=== PATIENT | male | born 1945 | race Caucasian/White ===

== ENCOUNTER 2017-12-01 11:54 | Inpatient (IN) | payer MEDICARE, BC ==
[~2017-12-01] VITALS: Ht 180.3 cm; Wt 240.0 kg
[~2017-12-01 11:54] MED LIST: Asprin PO; BENA40TA2 PO; FINA5TAB11 PO; HYT5T PO; METF500T PO; NOR5T PO
[2017-12-01 12:49] LABS: BASOPHILS % (AUTO) 0.2 % (0-1); EOSINOPHILS # (AUTO) 0.1 X10'3 (0-0.9); EOSINOPHILS % (AUTO) 1.8 % (0-6); HEMATOCRIT 44.1 % (42.0-52.0); HEMOGLOBIN 15.2 g/dl (14.0-17.9); LYMPHOCYTES # (AUTO) 1.1 X10'3 (1.1-4.8); LYMPHOCYTES % (AUTO) 17.9 % (21-51); MEAN CORPUSCULAR HEMOGLOBIN 30.5 PG (27.0-31.0); MEAN CORPUSCULAR HGB CONC 34.4 % (33.0-36.5); MEAN CORPUSCULAR VOLUME 88.7 FL (78-98); MEAN PLATELET VOLUME 8.9 FL (7.4-10.4); MONOCYTES # (AUTO) 0.5 X10'3 (0-0.9); MONOCYTES % (AUTO) 8.5 % (2-12); NEUTROPHILS # (AUTO) 4.4 X10'3 (1.8-7.7); NEUTROPHILS % (AUTO) 71.6 % (42-75); PLATELET COUNT 127 X10'3 (140-440); RED BLOOD COUNT 4.97 X10'6 (4.70-6.10); RED CELL DISTRIBUTION WIDTH 13.9 % (11.5-14.5); WHITE BLOOD COUNT 6.1 X10'3 (4.5-11.0)
[2017-12-01 13:00] LABS: PROTHROMBIN TIME 10.7 SECONDS (9.0-12.0)
[2017-12-01 13:15] LABS: ALANINE AMINOTRANSFERASE 30 U/L (12-78); ALBUMIN 3.7 G/DL (3.4-5.0); ALBUMIN/GLOBULIN RATIO 1.1 (1.1-1.5); ALKALINE PHOSPHATASE 69 IU/L (46-116); ANION GAP 10 (8-16); ASPARTATE AMINO TRANSFERASE 19 U/L (10-37); BILIRUBIN,TOTAL 0.4 MG/DL (0.1-1.0); BLOOD UREA NITROGEN 23 MG/DL (7-18); BUN/CREATININE RATIO 16.4 (5.4-32.0); CALCIUM 9.2 MG/DL (8.5-10.1); CHLORIDE 107 MMOL/L (99-107); GLUCOSE 208 MG/DL (70-104); MAGNESIUM 1.8 MG/DL (1.5-2.4); SODIUM 143 MMOL/L (135-145); TOTAL CARBON DIOXIDE 26.5 MMOL/L (24-32); TOTAL PROTEIN 7.2 G/DL (6.4-8.2); eGFR 50 ML/MIN
[2017-12-01] MEDS ORDERED: CANA300T PO (13:47)
[2017-12-01] MEDS ORDERED: METO25TA6 PO (13:48)
[2017-12-01] MEDS ORDERED: NITR0.4T SL (13:50)
[2017-12-01] MEDS ORDERED: SITA100T11 PO (13:51)
[2017-12-01] MEDS ORDERED: CHOL10002 PO (13:51)
[2017-12-01] MEDS ORDERED: MESSAGE TO PHARMACY PO ONE (14:30)
[2017-12-01] MEDS ORDERED: insulin Lispro (HumaLOG) vial - multi-dose SQ SCH (14:30)
[2017-12-01] MEDS ORDERED: glucagon, human recombinant 1mg kit SUBCUT PRN (14:30)
[2017-12-01] MEDS ORDERED: magnesium 2GM in 50ml NS 50 ML IV PRN (14:30)
[2017-12-01] MEDS ORDERED: potassium Cl 20 mEq SR tablet PO PRN ×2 (14:30)
[2017-12-01] MEDS ORDERED: mag hydrox/Alum hydrox/simeth 30ml oral suspension PO PRN (14:30)
[2017-12-01] MEDS ORDERED: ondansetron/PF 4mg/2ml inj IV PRN (14:30)
[2017-12-01] MEDS ORDERED: dextrose ORAL solution 15 GM/59 ML bottle PO PRN ×2 (14:30)
[2017-12-01] MEDS ORDERED: magnesium hydroxide 30ml (MOM) UD suspension PO PRN (14:30)
[2017-12-01] MEDS ORDERED: magnesium 4gm in 100ml NS 100 ML IV PRN (14:30)
[2017-12-01] MEDS ORDERED: acetaminophen 325mg tablet PO PRN ×2 (14:30)
[2017-12-01] MEDS ORDERED: HYDROcodone/acetaminophen 5mg/325mg tablet PO PRN (14:30)
[2017-12-01] MEDS ORDERED: potassium Cl 40MEQ/NS 500ml 500 ML IV PRN ×2 (14:30)
[2017-12-01] MEDS ORDERED: magnesium Cl slow-release 64mg tablet PO PRN (14:30)
[2017-12-01] MEDS ORDERED: dextrose 50%-water 50ml dispensing syringe IV PRN ×2 (14:30)
[2017-12-01] MEDS ORDERED: HYDROcodone/acetaminophen 10/325mg tab PO PRN (14:30)
[2017-12-01] MEDS ORDERED: morphine 2 MG/ML inj. syringe IV PRN ×2 (14:30)
[2017-12-01] MEDS ORDERED: TRAM50TA2 PO (15:58)
[2017-12-01] MEDS: normal saline 1000ml 1,000 ML IV SCH (16:08)
[2017-12-01 19:05] VITALS: BP 143/75
[2017-12-01] MEDS: heparin, porcine 5000 units/ml vial SQ SCH (20:53)
[2017-12-01] MEDS ORDERED: temazepam 15mg capsule PO PRN (21:00)
[2017-12-01] MEDS ORDERED: terazosin 5mg capsule PO SCH (21:00)
[2017-12-01] MEDS ORDERED: insulin glargine (Lantus) pen - multi-dose SQ SCH (21:00)
[2017-12-02] VITALS: BP 135/77
[2017-12-02 01:45] LABS: ALANINE AMINOTRANSFERASE 34 U/L (12-78); ALBUMIN 3.6 G/DL (3.4-5.0); ALBUMIN/GLOBULIN RATIO 1.1 (1.1-1.5); ALKALINE PHOSPHATASE 61 IU/L (46-116); ANION GAP 5 (8-16); ASPARTATE AMINO TRANSFERASE 16 U/L (10-37); BILIRUBIN,TOTAL 0.5 MG/DL (0.1-1.0); BLOOD UREA NITROGEN 24 MG/DL (7-18); CALCIUM 8.7 MG/DL (8.5-10.1); CHLORIDE 108 MMOL/L (99-107); CHOL/HDL RATIO 3.3 (0.00-4.99); CHOLESTEROL 162 MG/DL (0-200); GLUCOSE 156 MG/DL (70-104); HDL CHOLESTEROL 49 MG/DL (35-60); LDL CHOLESTEROL 89 MG/DL (50-100); MAGNESIUM 1.9 MG/DL (1.5-2.4); POTASSIUM 4.2 MMOL/L (3.5-5.1); SODIUM 143 MMOL/L (135-145); TOTAL CARBON DIOXIDE 29.8 MMOL/L (24-32); TOTAL PROTEIN 6.8 G/DL (6.4-8.2); TRIGLYCERIDES 227 MG/DL (20-135); eGFR 59 ML/MIN
[2017-12-02 01:52] LABS: BASOPHILS # (AUTO) 0.1 X10'3 (0-0.2); EOSINOPHILS # (AUTO) 0.2 X10'3 (0-0.9); HEMATOCRIT 41.9 % (42.0-52.0); HEMOGLOBIN 14.6 g/dl (14.0-17.9); LYMPHOCYTES # (AUTO) 1.4 X10'3 (1.1-4.8); LYMPHOCYTES % (AUTO) 25.5 % (21-51); MEAN CORPUSCULAR HEMOGLOBIN 30.9 PG (27.0-31.0); MEAN CORPUSCULAR HGB CONC 34.9 % (33.0-36.5); MEAN CORPUSCULAR VOLUME 88.7 FL (78-98); MEAN PLATELET VOLUME 9.1 FL (7.4-10.4); MONOCYTES # (AUTO) 0.7 X10'3 (0-0.9); MONOCYTES % (AUTO) 12.1 % (2-12); NEUTROPHILS # (AUTO) 3.3 X10'3 (1.8-7.7); NEUTROPHILS % (AUTO) 58.4 % (42-75); PLATELET COUNT 120 X10'3 (140-440); RED BLOOD COUNT 4.73 X10'6 (4.70-6.10); RED CELL DISTRIBUTION WIDTH 13.5 % (11.5-14.5); WHITE BLOOD COUNT 5.6 X10'3 (4.5-11.0)
[2017-12-02] MEDS: normal saline 1000ml 1,000 ML IV SCH (03:46)
[2017-12-02 07:14] VITALS: BP 149/80
[2017-12-02] MEDS ORDERED: pantoprazole 40mg Tablet.DR PO SCH (07:30)
[2017-12-02] MEDS: heparin, porcine 5000 units/ml vial SQ SCH (07:32)
[2017-12-02] MEDS ORDERED: BENAZEPRIL HCL 40 MG PO SCH (08:00)
[2017-12-02] MEDS ORDERED: lisinopril 20mg tablet PO SCH (08:00)
[2017-12-02] MEDS ORDERED: K and/or MAG REPLACEMENT MC SCH (08:00)
[2017-12-02] MEDS ORDERED: amLODIPine 5mg tablet PO SCH (08:00)
[2017-12-02] MEDS ORDERED: finasteride 5mg tablet PO SCH (08:00)
[2017-12-02] MEDS ORDERED: metoprolol tartrate 25mg tablet PO SCH (08:00)
[2017-12-02 11:00] VITALS: BP 132/90
== END 2017-12-02 13:31 | disposition home or self-care (01) | DRG 313 ==
LOC: ER 11:55 → ED HOLD 14:26 → SUR 3N 19:04
PROVIDERS: ADMIT Internal Medicine; ATTEND Internal Medicine
DX: R07.89 Other chest pain (principal); I25.10 Atherosclerotic heart disease of native coronary artery without angina pectoris; D69.6 Thrombocytopenia, unspecified; E11.22 Type 2 diabetes mellitus with diabetic chronic kidney disease; E11.65 Type 2 diabetes mellitus with hyperglycemia; N18.3 Chronic kidney disease, stage 3 (moderate); I10 Essential (primary) hypertension; Z79.82 Long term (current) use of aspirin; Z79.899 Other long term (current) drug therapy; Z79.84 Long term (current) use of oral hypoglycemic drugs; Z87.01 Personal history of pneumonia (recurrent); Z87.891 Personal history of nicotine dependence; Z95.1 Presence of aortocoronary bypass graft
CPT/HCPCS: 36415; 71045; 80053; 80061; 82948; 83036; 83735; 83880; 84484; 85025; 85610; 87070; 93005; 93308; 99285; J1644; J1815; J7030

== ENCOUNTER 2019-08-16 15:51 | Emergency (ER) | payer MEDICARE, BC ==
[~2019-08-16] VITALS: Ht 177.8 cm; Wt 96.3 kg
[~2019-08-16 15:51] MED LIST changes: -BENA40TA2 PO; +BENA40TA73 PO; +CANA300T PO; +CHOL10002 PO; +METO25TA6 PO; +NITR0.4T SL; +SITA100T11 PO; +TRAM50TA2 PO
[2019-08-16 16:16] LABS: BASOPHILS # (AUTO) 0.1 X10'3 (0-0.2); BASOPHILS % (AUTO) 1.2 % (0-1); EOSINOPHILS # (AUTO) 0.3 X10'3 (0-0.9); EOSINOPHILS % (AUTO) 4.5 % (0-6); HEMATOCRIT 46.3 % (42.0-52.0); HEMOGLOBIN 15.8 g/dl (14.0-17.9); LYMPHOCYTES # (AUTO) 0.8 X10'3 (1.1-4.8); LYMPHOCYTES % (AUTO) 14.2 % (21-51); MEAN CORPUSCULAR HEMOGLOBIN 30.7 PG (27.0-31.0); MEAN CORPUSCULAR HGB CONC 34.2 g/dL (33.0-36.5); MEAN CORPUSCULAR VOLUME 89.9 FL (78-98); MEAN PLATELET VOLUME 9.6 FL (7.4-10.4); MONOCYTES # (AUTO) 0.5 X10'3 (0-0.9); MONOCYTES % (AUTO) 9.2 % (2-12); NEUTROPHILS # (AUTO) 4.2 X10'3 (1.8-7.7); NEUTROPHILS % (AUTO) 70.9 % (42-75); PLATELET COUNT 155 X10'3 (140-440); RED BLOOD COUNT 5.15 X10'6 (4.70-6.10); RED CELL DISTRIBUTION WIDTH 13.5 % (11.5-14.5)
[2019-08-16 16:37] LABS: ALANINE AMINOTRANSFERASE 89 U/L (12-78); ALBUMIN 3.7 G/DL (3.4-5.0); ALBUMIN/GLOBULIN RATIO 0.9 (1.1-1.5); ALKALINE PHOSPHATASE 180 IU/L (46-116); ANION GAP 13 (8-16); ASPARTATE AMINO TRANSFERASE 87 U/L (10-37); BILIRUBIN,TOTAL 0.6 MG/DL (0.1-1.0); BLOOD UREA NITROGEN 26 MG/DL (7-18); BUN/CREATININE RATIO 17.4 (5.4-32.0); CALCIUM 9.8 MG/DL (8.5-10.1); CHLORIDE 102 MMOL/L (99-107); CREATININE 1.49 MG/DL (0.60-1.10); GLUCOSE 140 MG/DL (70-104); LIPASE 239 U/L (73-393); MAGNESIUM 1.8 MG/DL (1.5-2.4); SODIUM 143 MMOL/L (135-145); TOTAL CARBON DIOXIDE 28.1 MMOL/L (24-32); TOTAL PROTEIN 7.8 G/DL (6.4-8.2); eGFR 46 ML/MIN
[2019-08-16 16:56] LABS: POTASSIUM 2.9 MMOL/L (3.5-5.1)
[2019-08-16] MEDS ORDERED: potassium 10mEq/100ml NS w/LIDOcaine (10mg/bag) IV ONE (17:00)
[2019-08-16] MEDS ORDERED: potassium Cl 20 mEq SR tablet PO ONE (17:00)
[2019-08-16] MEDS ORDERED: potassium CL 10mEq/100ml bag 100 ML IV ONE (17:05)
[2019-08-16 18:30] VITALS: BP 144/81
== END 2019-08-16 18:33 | disposition home or self-care (01) ==
LOC: ER 15:52
DX: C78.7 Secondary malignant neoplasm of liver and intrahepatic bile duct (principal); C78.6 Secondary malignant neoplasm of retroperitoneum and peritoneum; E87.6 Hypokalemia; I25.10 Atherosclerotic heart disease of native coronary artery without angina pectoris; E11.9 Type 2 diabetes mellitus without complications; F17.200 Nicotine dependence, unspecified, uncomplicated; Z95.1 Presence of aortocoronary bypass graft; Z79.84 Long term (current) use of oral hypoglycemic drugs; Z79.899 Other long term (current) drug therapy
CPT/HCPCS: 36415; 71045; 71250; 74176; 80053; 83690; 83735; 83880; 84484; 85025; 93005; 96365; 99284; J3480